=== PATIENT | male | born 1995 | race Caucasian/White ===

== ENCOUNTER 2018-09-27 00:10 | Emergency (ER) | payer OTHER ==
[~2018-09-27] VITALS: Ht 172.7 cm; Wt 81.2 kg
[2018-09-27 00:23] VITALS: BP 123/77
--- NOTE | 2018-09-27 01:00 | NUR ---
23M. C/O NECK PAIN AFTER ATTEMPTING INCLINED WEIGHTED SITUPS. PT STATES THAT INCIDENT "HAPPENED BEFORE BUT NEVER THIS BAD" C/O PAIN 04/01 TO DORSAL NECK AREA. FAMILY AT BEDSIDE. BED IN LOWEST POSITION. AOX4. ABLE TO VERBALIZE NEEDS. WILL CONTINUE TO MONITOR.
--- NOTE | 2018-09-27 01:07 | NUR ---
PT TAKEN TO CT
--- NOTE | 2018-09-27 01:25 | NUR ---
pt back from ct
[2018-09-27] MEDS ORDERED: MORPHINE SULFATE 4 MG/ML SYR IM ONE (01:30)
== END 2018-09-27 02:35 | disposition home or self-care (01) ==
LOC: MED 00:10
DX: S16.1XXA Strain of muscle, fascia and tendon at neck level, initial encounter (principal); X50.1XXA Overexertion from prolonged static or awkward postures, initial encounter; Y93.B9 Activity, other involving muscle strengthening exercises; Y92.89 Other specified places as the place of occurrence of the external cause; Y99.8 Other external cause status
CPT/HCPCS: 70450; 72125; 96372; 99284; J2270